=== PATIENT | male | born 1980 | race Caucasian/White ===

== ENCOUNTER 2018-03-27 10:35 | Day surgery (SDC) | payer SELFPAY ==
[~2018-03-27] VITALS: Ht 162.6 cm; Wt 71.8 kg
[2018-03-27 10:38] VITALS: Ht 162.6 cm; Wt 71.8 kg
[2018-03-27 12:35] LABS: BASOPHILS 0.2 % (0-2); HEMATOCRIT 46.2 % (42.0-54.0); HEMOGLOBIN 16.2 g/dL (13.5-17.5); IMMATURE GRANULOCYTES 0.2 % (0-5); LYMPHOCYTES 33.2 % (15-50); MCH 32.1 pg (26.0-34.0); MCHC 35.1 g/dL (31.0-37.0); MCV 91.5 fL (80.0-100.0); MEAN PLATELET VOLUME 9.7 fL (7.4-10.4); MONOCYTES 7.9 % (2-11); NEUTROPHILS 57.5 % (40-80); PLATELET COUNT 300 10x3/uL (130-400); RBC 5.05 10x6/uL (4.20-6.10); RDW 13.1 % (11.5-14.5); WBC 12.5 10x3/uL (4.8-10.8)
[2018-03-27 12:50] LABS: ALBUMIN 4.2 g/dL (3.4-5.0); ANION GAP 17.1 mmol/L (8-16); BILIRUBIN - TOTAL 0.31 mg/dL (0.2-1.3); CALCIUM 8.6 mg/dL (8.5-10.1); CARBON DIOXIDE 22.6 mmol/L (21.0-32.0); CREATININE - SERUM 1.2 mg/dL (0.6-1.3); POTASSIUM - SERUM 3.7 mmol/L (3.5-5.1); PROTEIN - SERUM 8.1 g/dL (6.4-8.2)
--- NOTE | 2018-03-27 13:07 | NUR ---
PATIENT SEDATED, SEE ER NOTES FOR INFORMATION
[2018-03-27 13:18] VITALS: BP 135/85
--- NOTE | 2018-03-27 14:25 | NUR ---
REC'D FROM RR. DRESSING CDI TO LEFT THUMB. NO FAMILY AT BEDSIDE. COLA BROUGHT TO PT.
--- NOTE | 2018-03-27 14:55 | NUR ---
SONU RALPHAce BROUGHT TO PT. NO FAMILY HERE. RELATES HIS EX GIRLFRIEND HAD TAKEN HIS TRUCK AND PHONE AND HE COULD NOT REMEMBER ANYONES NUMBER. CALLED LEGAL FILE CLERK TO GET A VOUCHER FOR A CAB FARE.
--- NOTE | 2018-03-27 15:20 | NUR ---
TOLERATED DIET. IV DC'D WITH CATHETER INTACT. EXPLAINED TO PT WE WERE PROVIDING CAB FARE FOR TRANSPORTATION HOME. VERBALIZED UNDERSTANDING.
--- NOTE | 2018-03-27 15:40 | NUR ---
WRITTEN AND VERBAL DC INST. GIVEN TO PT ALONG WITH RX. VERBALIZED UNDERSTANDING. PATIENT'S EX GIRLFRIEND CAME INTO THE ROOM WE WERE ABOUT TO CALL FOR A CAB. SHE WAS HERE TO TAKE HIM HOME.
--- NOTE | 2018-03-27 15:55 | NUR ---
DC'D HOME WITH A FRIEND VIA PRIVATE VEHICLE. TAKEN TO THE VEHICLE VIA WC. STABLE AT TIME OF DC.
--- NOTE | 2018-03-29 10:37 | OP ---
PATIENT NAME: KELL COLEMAN MEDICAL RECORD: [id number] :82 LOCATION:[facility] ADMISSION DATE: SURGEON: TYRON GONCALVES MD DATE OF OPERATION: 03/27/2018 PREOPERATIVE DIAGNOSIS: Open tuft fracture of the left thumb with nailbed avulsion. POSTOPERATIVE DIAGNOSIS: Open tuft fracture of the left thumb with nailbed avulsion. PROCEDURES: 1. Nail bed reconstruction. 2. Debridement of open wound, skin; subcutaneous tissue; portions of fat, fascia, and muscle; less than 20 cm in aggregate. SURGEON: Tyron Goncalves MD ANESTHESIA: General, TIVA. INTRAOPERATIVE COMPLICATIONS: None. SUMMARY OF PATHOLOGIC FINDINGS: The patient had a near complete amputation and avulsion; however, he had good volar vascularization. Therefore, this was irrigated and closed. The distal tuft of the thumb was broken off. I did not feel like it warranted pin fixation as it was very small. OPERATIVE SUMMARY IN DETAIL: After obtaining the appropriate preoperative orthopedic surgery consent as well as anesthetic consultation, evaluation, and clearance, the patient was brought to the operating room and placed on the operating table in the supine position. After general laryngeal mask airway was administered, the patient's left upper extremity, having adequately been blocked, was prepped and draped in routine sterile fashion. Copious pulsatile lavage was also coupled with rongeur and irrigation of debris and small bone fragments as well as the above mentioned. At this point, the thumb was held in a reduced position with the nail bed back into the germinal fold and transnail bed sutures were taken up into the more proximal aspect of the dorsal aspect of the skin in multiple rows to reapproximate this. The side lacerations on radial and ulnar side of the thumb too were likewise closed with simple sutures. Having completed this, sterile dressings were applied. The patient was awakened and taken to the recovery room in stable condition. All final needle and sponge counts were correct. TRANSINT:[id number] Voice Confirmation ID: [id number] DOCUMENT ID: [id number] TYRON GONCALVES MD at 1037 CC: [id number] DICTATION DATE: 03/27/18 1354 [address]LIND[address] PRESS OPERATOR: 03/27/18 [address] [facility] 03/27/18 [place] [address]
[2018-04-16 13:07] VITALS: Ht 162.6 cm; Wt 71.8 kg
== END 2018-03-27 15:55 | disposition home or self-care (01) ==
LOC: D.ER 10:35 → D.OPS 10:35 → EDSTATUS 13:00 → D.OPS 15:55
PROVIDERS: Emergency Medicine
DX: S62.522B Displaced fracture of distal phalanx of left thumb, initial encounter for open fracture (principal); S61.102A Unspecified open wound of left thumb with damage to nail, initial encounter; X58.XXXA Exposure to other specified factors, initial encounter; Z01.812 Encounter for preprocedural laboratory examination

== ENCOUNTER 2018-04-15 18:51 | Inpatient (IN) | payer MEDICAID ==
[~2018-04-15] VITALS: Ht 162.6 cm; Wt 71.2 kg
--- NOTE | 2018-04-15 20:40 | NUR ---
RECEIVED PATIENT FROM ER, ADMITTED WITH CELLULITIS IN L THUMB, GOING FOR SX IN AM. INTRODUCED SELF TO PATIENT, BED IN LOWEST POSITION, FRIEND AT BEDSIDE WITH FOOD. EXPLAINED PATIENT IS NPO AFTER MIDNIGHT, PT UNDERSTOOD. CALL LIGHT WITHIN REACH. NO S/SX OF DISTRESS OF PAIN AT THIS TIME.
[2018-04-15 21:26] LABS: BASOPHILS 0.2 % (0-2); EOSINOPHILS 1.4 % (0-7); HEMATOCRIT 42.9 % (42.0-54.0); HEMOGLOBIN 14.7 g/dL (13.5-17.5); IMMATURE GRANULOCYTES 0.2 % (0-5); LYMPHOCYTES 18.6 % (15-50); MCH 31.5 pg (26.0-34.0); MCHC 34.3 g/dL (31.0-37.0); MCV 92.1 fL (80.0-100.0); MEAN PLATELET VOLUME 8.9 fL (7.4-10.4); MONOCYTES 9.6 % (2-11); PLATELET COUNT 271 10x3/uL (130-400); RBC 4.66 10x6/uL (4.20-6.10); RDW 13.4 % (11.5-14.5); WBC 12.5 10x3/uL (4.8-10.8)
--- NOTE | 2018-04-15 21:55 | NUR ---
ELECTROPLATING LABORER STARTED. BOLUS DOSE GIVEN. PT HAS NO S/S OF DISTRESS. WILL CPOC
[2018-04-16] VITALS: BP 128/70
--- NOTE | 2018-04-16 01:25 | NUR ---
PATIENT SLEEPING, RESP EVEN AND UNLABORED. BED IN LOWEST POSITION, CALL LIGHT WITHIN REACH. NO SIGNS/SYMPTOMS OF DISTRESS OR PAIN AT THIS TIME. WILL CONTINUE TO MONITOR.
[2018-04-16 05:11] VITALS: BP 140/96
--- NOTE | 2018-04-16 06:15 | NUR ---
HIPACLEANSE TO LEFT THUMB, PATIENT REMAINED NPO THROUGHOUT THE NIGHT. GAVE BOLUS 0.4MG FOR PAIN CONTROL. RESP QUAN AND UNLABORED. PATIENT PROVIDED GOWN AND INSTRUCTED TO CHANGE INTO IT. BED IN LOWEST POSITION, CALL LIGHT IN REACH. NO NEEDS AT THIS TIME, WILL CONTINUE TO MONITOR.
[2018-04-16 09:46] VITALS: BP 115/66
--- NOTE | 2018-04-16 11:14 | NUR ---
PT INQUIRED ON WHEN POSSIBLE SURGERY MAY BE, ADVISED PT I HAVE NOT SEEN ANY ORDERS YET BUT PT IS NPO AND WE WILL CONTINUE WITH PLAN OF CARE
[2018-04-16 12:52] VITALS: BMI 26.9
[2018-04-16 13:02] VITALS: BP 109/50
[2018-04-16 13:07] VITALS: Ht 162.6 cm; Wt 71.2 kg
[2018-04-16 17:27] VITALS: BP 110/68
--- NOTE | 2018-04-16 18:00 | NUR ---
PT REQUESTED FRUIT SALAD AND A COKE. KITCHEN NOTIFIED. HYACINTH.
--- NOTE | 2018-04-16 19:36 | NUR ---
INTRODUCED SELF TO PATIENT, PATIENT WAS IN BED EATING A FRUIT TRAY. PATIENT UPDATED ME THAT HE DIDN'T HAVE SURGERY AND WOULD CONTINUE ON ANTIBIOTIC TREATMENT. BED IN LOWEST POSITION, CALL LIGHT WITHIN REACH. NO NEEDS AT THIS TIME.
[2018-04-16 20:05] VITALS: BP 119/72
--- NOTE | 2018-04-16 21:07 | NUR ---
CLINDAMYCIN CONT AT DISPOSITION
--- NOTE | 2018-04-17 00:27 | NUR ---
GAVE PATIENT DILAUDID BOLUS OF 0.4MG, PATIENT GRIMACING AND RATED PAIN 4/10. BED IN LOWEST POSITION, CALL LIGHT WITHIN REACH. NO NEEDS AT THIS TIME.
[2018-04-17 05:20] VITALS: BP 132/80
[2018-04-17 06:28] LABS: CALC OSMOLALITY 276 mosm/kg (275-300); CALCIUM 7.8 mg/dL (8.5-10.1); CARBON DIOXIDE 28.6 mmol/L (21.0-32.0); CHLORIDE - SERUM 102 mmol/L (98-107); HEMATOCRIT 43.5 % (42.0-54.0); HEMOGLOBIN 14.2 g/dL (13.5-17.5); MCH 30.8 pg (26.0-34.0); MCHC 32.6 g/dL (31.0-37.0); MEAN PLATELET VOLUME 9.2 fL (7.4-10.4); POTASSIUM - SERUM 3.8 mmol/L (3.5-5.1); RBC 4.61 10x6/uL (4.20-6.10); RDW 13.6 % (11.5-14.5); SODIUM 137 mmol/L (136-145); UREA NITROGEN 12 mg/dL (7-18); WBC 9.7 10x3/uL (4.8-10.8); eGFR NON AFRICAN AMERICAN 90 mL/min (90-120)
[2018-04-17 06:34] LABS: GLUCOSE 144 mg/dL (74-106)
[2018-04-17 06:40] LABS: MCV 94.4 fL (80.0-100.0)
[2018-04-17 08:00] VITALS: BP 128/69
--- NOTE | 2018-04-17 08:00 | NUR ---
PT RESTING EYES CLOSED, NO SIGNS OF DISTRESS NOTED, CL IN REACH WILL CONTINUE TO MONITOR
[2018-04-17 11:53] VITALS: BP 118/74
--- NOTE | 2018-04-17 12:39 | NUR ---
PT AAOX4 SITTING UP IN BED EATING LUNCH, NO SIGNS OF DISTRESS NOTED, CL IN REACH BED IN LOWEST POSTION SR UPX2
[2018-04-17 16:00] VITALS: BP 116/76
--- NOTE | 2018-04-17 18:19 | NUR ---
UP IN BR PER SELF. DENIES NEEDS.
[2018-04-17 20:00] VITALS: BP 113/70
[2018-04-18] VITALS: BP 118/73
[2018-04-18 04:00] VITALS: BP 123/81
--- NOTE | 2018-04-18 07:30 | NUR ---
AMBULATING IN HALLWAY. DENIES ANY NEEDS AT THIS TIME.
[2018-04-18] MEDS ORDERED: CLEOCIN HCL300 MG PO (09:12)
[2018-04-18] MEDS ORDERED: NORCO 10-325 TA1 TAB PO (09:12)
--- NOTE | 2018-04-18 13:10 | NUR ---
DISCUSSED DISCHARGE, MEDICATION AND FOLLOW-UP INSTRUCTIONS WITH PATIENT. VERBALIZED UNDERSTANDING. IV REMOVED, TIP INTACT. ALL BELONGINGS SENT WITH PATIENT. PATIENT DISCHARGED HOME VIA WHEELCHAIR BY DAVID BRAN.
--- NOTE | 2018-04-22 06:41 | NUR ---
CLINDAMYCIN CONT AT DISPOSITION
== END 2018-04-18 13:11 | disposition home or self-care (01) | DRG 921 ==
LOC: D.ER 18:51 → D.M3 20:10 → OBSVTIME 20:10 → D.M3 20:10
PROVIDERS: Family Medicine; ADMIT Orthopaedic Surgery
DX: L76.82 Other postprocedural complications of skin and subcutaneous tissue (principal); L03.012 Cellulitis of left finger; Y83.8 Other surgical procedures as the cause of abnormal reaction of the patient, or of later complication, without mention of misadventure at the time of the procedure; S62.522D Displaced fracture of distal phalanx of left thumb, subsequent encounter for fracture with routine healing; X58.XXXD Exposure to other specified factors, subsequent encounter; Z72.0 Tobacco use